=== PATIENT | female | born 1960 | race Caucasian/White ===

== ENCOUNTER 2021-05-22 14:19 | Outpatient (CLI) | payer BC | END 2021-05-22 14:20 | disposition home or self-care (01) | LOC: CSHMAMMO 14:19 | PROVIDERS: ATTEND Family Medicine | DX: Z12.31 Encounter for screening mammogram for malignant neoplasm of breast (principal) | CPT/HCPCS: 77063; 77067 ==

== ENCOUNTER 2022-02-17 09:47 | Outpatient (CLI) | payer BC | END 2022-02-17 09:48 | disposition home or self-care (01) | LOC: CSHCT 09:47 | PROVIDERS: ATTEND Urology | DX: N20.0 Calculus of kidney (principal); N28.1 Cyst of kidney, acquired; K76.89 Other specified diseases of liver; D73.4 Cyst of spleen | CPT/HCPCS: 74170 ==